=== PATIENT | female | born 1995 | race Caucasian/White ===

== ENCOUNTER 2017-07-15 12:35 | Emergency (ER) | payer SELFPAY ==
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
== END 2017-07-15 14:10 | disposition home or self-care (01) ==
LOC: ER 12:35
DX: S50.11XA Contusion of right forearm, initial encounter (principal); S80.12XA Contusion of left lower leg, initial encounter; S80.11XA Contusion of right lower leg, initial encounter; X58.XXXA Exposure to other specified factors, initial encounter; Y93.89 Activity, other specified; Y92.89 Other specified places as the place of occurrence of the external cause; Y99.8 Other external cause status
CPT/HCPCS: 73120-TC-RT; Z7502